=== PATIENT | male | born 1975 | race Caucasian/White ===

== ENCOUNTER → 2021-08-01 | Outpatient (CLI) | payer BC ==
--- NOTE | 2021-08-01 16:13 | RAD ---
XR BILAT FEET 3 VIEWS 08/01/2021 3:10 PM INDICATION: Pain COMPARISON: None available. TECHNIQUE: 3 views of the right and 3 views of the left foot are provided. FINDINGS/ IMPRESSION: There is no acute fracture or dislocation. Joint spaces are maintained. Bone mineralization is within normal limits. Regional soft tissues are within normal limits. There is no soft tissue gas or osseou s erosion. No radiopaque foreign body. Tiny plantar calcaneal enthesophytes are identified bilaterall y. Electronically signed by: Tracy Mancini MD (08/01/2021 4:10 PM) [facility]
== END ==
LOC: RAD 14:38
PROVIDERS: ATTEND Podiatrist
DX: M79.671 Pain in right foot (principal); M79.672 Pain in left foot
CPT/HCPCS: 73630-50